=== PATIENT | female | born 1975 | race Caucasian/White ===

== ENCOUNTER 2024-04-18 23:15 | Emergency (ER) | payer MEDICAID, OTHER ==
[~2024-04-18] VITALS: Ht 167.6 cm; Wt 109.0 kg
[2024-04-18] MEDS: SODIUM CHLORIDE 0.9% 1,000 ML IV ONE (00:40)
[2024-04-18] MEDS: MIDAZOLAM HCL 2MG/2ML 2ml VIAL (1mg/ml) IV ONE (00:47)
[2024-04-18] MEDS: KETAMINE 50mg/ML 10ml Vial (500mg/10ml) IV ONE (00:47)
[2024-04-18] MEDS: FAMOTIDINE (10MG/ML) 2ML VL IV ONE (00:47)
--- NOTE | 2024-04-18 23:55 | ED.PDOC ---
History of Present Illness HPI Comments 48 y/o F is BIBA for c/o left-shoulder pain, today. Per EMS report, patient endorses on sudden and unprovoked onset of pain 45x minutes prior to arrival after "rubbing" her shoulders, this evening. She comments on having Hx of dislocations in left-shoulder 3x in the past and suspects on "dislocating it, again." Patient reports no recent injuries, strenuous activities, or other relevant information at time of assessment. She denies having any numbness, tingling, weakness, loss of sensation, or other associated symptoms or modifiers at this time. En route, patient was commented to have been placed in a sling and given 30mg of Ketamine en route. 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: Denies all CUP SETTER LOCKSTITCH Hx Family History Family History: Unknown Social History Smoker: Non-Smoker Alcohol: Occasionally Drugs: Denies Drug Use Lives In: Home Musculoskeletal: reports: others (left shoulder pain ) All Other Systems: Reviewed and Negative (negative unless otherwise stated above or in HPI) Physical Exam General Appearance: Moderate Distress, Normal HEENT: Normal ENT Inspection, Pharynx Normal, TMs Normal Neck: Full Range of Motion, Non-Tender, Normal, Normal Inspection Respiratory: Chest Non-Tender, Lungs Clear, No Accessory Muscle Use, No Respiratory Distress, Normal Breath Sounds, Other (Alcohol on her breath) Cardiovascular: No Edema, No JVD, No Murmur, No Gallop, Normal Peripheral Pulses, Regular Rate/Rhythm Breast Exam: Deferred Gastrointestinal: No Organomegaly, Non Tender, No Pulsatile Mass, Normal Bowel Sounds, Soft Genitalia: Deferred Pelvic: Deferred Rectal: Deferred Extremities: Decreased range of motion, No calf tenderness, Normal capillary refill, Normal inspection, No pedal edema, Tender (left shoulder) Musculoskeletal : Location: Left Extremity Location: Shoulder Apperance: Normal, Tenderness Neurologic: Alert, oem sales manager II-XII nml as Tested, No Motor Deficits, Normal Affect, Normal Mood, No Sensory Deficits Cerebellar Function: Normal Reflexes: Normal Skin: Dry, Normal Color, Warm Lymphatic: No Adenopathy Was a procedure done? Was a procedure done?: Yes Sedation Sedation?: Yes Informed consent obtained: Yes Sedation start time: 00:20 Sedation end time: 00:35 Sedation total time: 15 minutes Reduction Indication: Dislocation Sedation: Consents obtained, Sedation as ordered (100mg ketamine, 2x versed, 20mg pepcid) Intra-articular anesthetic lindy: No Post-reduction x-ray show: Reduction, Good Alignment Informed consent obtained: Yes Risks/benefits/alt described: Yes Differential Dx Considerations may include: dislocation, fracture, sprain X-Ray, Labs, Meds, VS Vital Signs Date Time Temp Pulse Resp B/P (MAP) Pulse Ox O2 Delivery O2 Flow Rate FiO2 04/19/24 00:53 98.2 111 18 200/111 (140) 97 98.2 04/19/24 00:53 136 97 Room Air* 0 21 04/18/24 23:23 97.0 94 24 131/78 (95) 98 Lab Test 04/18/24 23:43 Range/Units Beta HCG, Quantitative 1.6 1.5-4.2 mIU/mL Current Medications Medications (Trade) Dose Ordered Sig/Willis Route Start Time Stop Time Status Last Admin Famotidine (Pepcid Injection) 20 mg ONCE ONCE IV 04/18/24 23:30 04/18/24 23:31 DC 04/18/24 00:47 Midazolam HCl (Versed Injection) 2 mg ONCE ONCE IV 04/18/24 23:30 04/18/24 23:31 DC 04/18/24 00:47 Ketamine HCl (Ketalar) 100 mg ONCE ONCE IV 04/18/24 23:30 04/18/24 23:31 DC 04/18/24 00:47 Sodium Chloride 1,000 ml @ 1,000 mls/hr Q1H ONCE IV 04/18/24 23:30 04/19/24 00:29 DC 04/18/24 00:[address] [address] Ph: [phone] DIAGNOSTIC IMAGING Diagnostic Imaging Report : [id number] Signed PATIENT: JORGITO JENKINSACCT: [id number] UNIT: [id number] : 1975 LOC: ER ROOM / BED: / AGE / SEX: 48 / F ADM STATUS: REG ER SERVICE 17 ORDERING PHYSICIAN: RONNI EVANS MD PROCEDURE(s): LSHD2 - L SHOULDER 2+ VIEW XRAY REASON: dislocation ORDER NUMBER(s): [id number], ACCESSION NUMBER(s): [id number] CLINICAL INDICATION: dislocation TECHNIQUE: XY L SHOULDER 2+ VIEW XRAY Comparison: None FINDINGS: IMPRESSION: No osseous or joint abnormality identified with no fracture or dislocation. ATED BY: MICHAEL HERNANDEZ MD DICTATED DATE/TIME: 04/19/24105 SIGNED BY: MICHAEL HERNANDEZ MD SIGNED DATE/TIME: 04/19/24105 CC: Patient's left shoulder was reduced safely without complication. Time of 1ST Reevaluation: 23:45 Reevaluation 1ST: Unchanged Patient Education/Counseling: Diagnosis, Treatment Family Education/Counseling: No Family Present Departure 1 Departure Time of Disposition: 01:20 Impression: Primary Impression: Shoulder dislocation Qualified Codes: S43.005A - Unspecified dislocation of left shoulder joint, initial encounter Additional Impression: Alcohol intoxication Qualified Codes: F10.920 - Alcohol use, unspecified with intoxication, uncomplicated Disposition: 01 HOME / SELF CARE / HOMELESS Condition: Stable Additional Instructions: Reassessed patient, vital signs stable. Denies any new symptoms. Patient is able to tolerate PO and ambulate/be mobile at their baseline without concern. Risks and benefits of all medications given or prescribed, if any, discussed. All lab work, imaging and diagnostic studies were reviewed by me. The patient was counseled extensively on my clinical impression, diagnosis, expected course of the disease, and plan, including their follow-up care. Will discharge patient. Patient instructed to follow up with Primary Care Physician within 24-48 hours. Strict return precautions given for further exacerbation of symptoms or for new symptoms. The patient was given the opportunity to ask questions and all questions were answered by myself and the nursing/tech staff. Patient is in agreement with the care plan. The patient verbally expressed understanding of the discharge instructions, including the reasons to return to the Emergency Department. Written Prescriptions Reassessed patient, vital signs stable. Denies any new symptoms. Patient is able to tolerate PO and ambulate/be mobile at their baseline without concern. Risks and benefits of all medications given or prescribed, if any, discussed. All lab work, imaging and diagnostic studies were reviewed by me. The patient was counseled extensively on my clinical impression, diagnosis, expected course of the disease, and plan, including their follow-up care. Will discharge patient. Patient instructed to follow up with Primary Care Physician within 24-48 hours. Strict return precautions given for further exacerbation of symptoms or for new symptoms. The patient was given the opportunity to ask questions and all questions were answered by myself and the nursing/tech staff. Patient is in agreement with the care plan. The patient verbally expressed understanding of the discharge instructions, including the reasons to return to the Emergency Department. Discharged With: Self Critical Care Note Critical Care Time?: No Stability Stability form required: No Heart Score Heart Score: Heart Score Response (Comments) Value History N/A 0 EKG N/A 0 Age N/A 0 Risk Factors N/A 0 Troponin N/A 0 Total 0 I personally scribed for RONNI EVANS MD ([email or web address]) on 04/18/24 at 23:55. Electronically submitted by Baltazar Linares ([email or web address]). I personally scribed for RONNI EVANS MD ([email or web address]) on 04/19/24 at 01:32. Electronically submitted by Baltazar Linares ([email or web address]). RONNI EVANS MD Apr 18, 2024 23:55
[2024-04-19 00:53] VITALS: BP 200/111; PULSE 136; RESP 18; TEMP 98.2; O2SAT 97
--- NOTE | 2024-04-19 01:09 | DVH ---
CLINICAL INDICATION: dislocation TECHNIQUE: XY L SHOULDER 2+ VIEW XRAY Comparison: None FINDINGS: IMPRESSION: No osseous or joint abnormality identified with no fracture or dislocation.
[2024-04-19] MEDS: ONDANSETRON HCL 4 MG/2 ML VIAL IV ONE (02:20)
== END 2024-04-19 02:22 | disposition home or self-care (01) ==
LOC: ER 23:15 → EDBD 23:15 → ER 04-19 02:20
DX: S43.085A Other dislocation of left shoulder joint, initial encounter (principal); X58.XXXA Exposure to other specified factors, initial encounter; Y93.89 Activity, other specified; Y92.89 Other specified places as the place of occurrence of the external cause; Y99.8 Other external cause status
CPT/HCPCS: 23650; 36415; 73030; 84702; 96361; 96374; 99152; 99285; J2250; J2405; J3490; J7030; 96375